=== PATIENT | female | born 1970 | race Caucasian/White ===

== ENCOUNTER → 2017-10-28 | Outpatient (CLI) | payer BC ==
[2017-10-28 13:58] VITALS: BP 114/59; PULSE 84; TEMP 98.1; BMI 20.5
--- NOTE | 2017-10-28 14:41 | P.HPOB ---
History of Present Illness H&P Date: 10/28/17 Chief Complaint: The patient is here for her routine gynecologic exam. This is a 47-year-old with an LMP of 10/10/2017. The patient states it has been about 20 years since her last pelvic exam. She does not use anything to prevent and is infrequently sexually active. She has not gotten without control since her miscarriage in her 20s. She states or periods are about every 26 days lasting 5-6 days with 2 days of heavier flow. Her periods in the past have been much heavier with 5 days of heavy flow in the past. She is without gynecologic complaints. Review of Systems The patient's weight has been stable over the last year. She denies respiratory , cardiac, or G.I. problems. Past Medical History Past Medical History: No Reported History Additional Past Medical History / Comment(s): Anxiety. Past [employer] history: she has a long history of secondary infertility. She has no history of STDs. History of Any Multi-Drug Resistant Organisms: None Reported Past Surgical History: No Surgical Hx Reported Additional Past Surgical History / Comment(s): D AND C Past Psychological History: Anxiety Smoking Status: Current every day smoker (1 pack per day) Past Alcohol Use History: None Reported Past Drug Use History: Marijuana Additional History: She has been since 1992. She works part-time at [employer]. - Past Family History Father Family Medical History: Cancer (Bone) Mother Family Medical History: Eye Disorder Medications and Allergies Home Medications Medication Instructions Recorded Confirmed Type ALPRAZolam [Xanax] mg PO DAILY 10/28/17 10/28/17 History Allergies Allergy/AdvReac Type Severity Reaction Status Date / Time amoxicillin AdvReac Itching Verified 10/28/17 14:36 Exam - Vital Signs Vital signs: Vital Signs Temp Pulse BP 10/28/17 13:53 98.1 F 84 114/59 Intake and Output 10/27/17 10/28/17 10/28/17 22:59 06:59 14:59 Other: Weight 50.802 kg Height 5'2", BMI 20.5. This is a well-developed well-nourished thin white female who is alert and oriented times 3 in no acute distress. HEENT: Within normal limits. NECK: Supple without mass or thyromegaly. CHEST AND LUNGS: Clear to auscultation. HEART: Regular rate and rhythm. BREASTS: Are without mass or discharge. AXILLARY EXAM: Negative for adenopathy. BACK: Negative for CVA tenderness. ABDOMEN: Soft, nontender, without palpable masses. PELVIC EXAM: Normal external genitalia with mild atrophy. Cervix and vagina appear normal with a nulliparous appearing anterior cervix with mild atrophy. There is no unusual discharge. There is no evidence of prolapse. The uterus is retroverted, nongravid size and nontender. There are no palpable adnexal masses or tenderness. RECTAL EXAM: refused by the patient EXTREMITIES: Nontender. IMPRESSION: 1. 47-year-old premenopausal female with normal gynecologic exam. 2. Long history of secondary infertility. PLAN: 1. Pap smear was performed. 2. Self breast awareness was discussed. 3. I have recommended screening mammography yearly. An order slip was given to the patient for this. 4. She does not use anything to prevent . She is declining any type of control. 5. Osteoporosis prevention was discussed. I have recommended that she quit smoking. 6. She will return one year.
--- NOTE | 2017-11-04 18:36 | P.PN ---
Progress Note - Text Progress Note Date: 11/04/17 OUTPATIENT FOLLOW-UP NOTE TEST(S)/RESULTS: paps smear from 10/28/2017 was negative METHOD OF NOTIFICATION: the patient was notified by phone PATIENT COMMENTS: the patient understands DIAGNOSIS: negative Pap smear DISCUSSION: PLAN: she has an order for her mammogram and will schedule that in the near future. She will also return in one year
== END ==
LOC: WWCWWP 13:36
PROVIDERS: ATTEND Obstetrics & Gynecology
DX: Z53.9 Procedure and treatment not carried out, unspecified reason (principal)